=== PATIENT | male | born 1945 | race Caucasian/White ===

== ENCOUNTER 2019-12-22 10:13 | Outpatient (CLI) | payer MEDICARE, SELFPAY ==
--- NOTE | ~2019-12-22 | CT_ITS ---
EXAMINATION: CTA abd aorta runoff DATE: 12/22/2019 11:03 INDICATION: Peripheral vascular disease TECHNIQUE: Computed tomographic angiography (CTA) of the abdomen, pelvis, and both lower extremities was performed with 150 mL Omnipaque-350 intravenous contrast. The dose-length product (DLP) was 1802. 62 mGy-cm. Maximum intensity projection 3D-reconstructions of the arteries were created by the techno logist on a separate workstation. Automated exposure control and iterative reconstruction technique w ere employed. COMPARISON: 05/21/2016 FINDINGS: ABDOMINAL AORTA AND ITS BRANCHES: There is calcified atherosclerosis of the aorta without aneurysm or dissection. The hepatic artery ar ises directly from the aorta. There is mild atherosclerosis at the origin of the superior mesenteric artery without hemodynamically significant stenosis. The celiac axis and inferior mesenteric artery a re unremarkable. Single renal arteries are present bilaterally. PELVIC VASCULATURE: There is calcified atherosclerosis without hemodynamically significant stenosis. RIGHT LOWER EXTREMITY VASCULATURE: There are areas of minimal calcified atherosclerosis without hemodynamically significant stenosis. A three-vessel runoff is noted at the ankle. Changes of knee arthroplasty limit evaluation at the level of the knees. LEFT LOWER EXTREMITY VASCULATURE: There is minimal calcified atherosclerosis of the superficial femoral artery and distal popliteal art skyler without hemodynamically significant stenosis. The anterior tibial artery is occluded just beyond its origin. There is a two-vessel runoff at the ankle. ADDITIONAL FINDINGS: Chronic scarring is noted in the right lower lobe. A calcified nodule of the left lower lobe is consi stent with old granulomatous disease. Cysts of the liver measure up to 1.9 cm. The spleen, pancreas, gallbladder, and adrenal glands are normal. The kidneys are unremarkable. No pathologically enlarged abdominal or pelvic lymph nodes are identified. There is no free intraperitoneal gas or evidence of b owel obstruction. A large volume of colonic stool is present. The prostate is enlarged. There is an u mbilical hernia which contains fat and the anterior wall of a nondistended small bowel loop. IMPRESSION: 1. 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 Reviewed, dictated and finalized at location A. IMPRESSION: 1. 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
[2019-12-22 10:46] LABS: Estimated Glomerular Filt Rate > 60
== END 2019-12-22 10:14 | disposition home or self-care (01) ==
LOC: ANHIMG 10:21
PROVIDERS: PCP Physician Assistant; Visit Provider Podiatrist Foot & Ankle Surgery
DX: I73.9 Peripheral vascular disease, unspecified (principal)
CPT/HCPCS: 36415; 75635; Q9967

== ENCOUNTER → 2021-03-10 07:00 | Outpatient (CLI) | payer MEDICARE, SELFPAY ==
[2021-03-10 21:00] LABS: SARS-CoV-2 RNA PCR Positive
== END ==
PROVIDERS: PCP Physician Assistant; Visit Provider Internal Medicine
DX: U07.1 COVID-19 (principal)
CPT/HCPCS: C9803; U0003; U0005

== ENCOUNTER 2021-03-10 12:49 | Emergency (ER) | payer MEDICARE, SELFPAY ==
--- NOTE | ~2021-03-10 | XR_ITS ---
EXAMINATION: XR chest 1V portable DATE: 03/10/2021 15:31 INDICATION: Cough. COVID-19 positive. TECHNIQUE: A single frontal view of the chest was obtained on 2 radiographs. COMPARISON: Chest 2 views 09/02/2016, CT abdomen and pelvis 12/22/2019 FINDINGS: There are airspace opacities in the lower lung zones. No pleural effusion or pneumothorax. The heart size is normal. IMPRESSION: 1. Airspace opacities in the lower lung zones, consistent with atelectasis/scarring versus pneumonia. Reviewed, dictated and finalized at location A. IMPRESSION: 1. Airspace opacities in the lower lung zones, consistent with atelectasis/scar ring versus pneumonia.
[2021-03-10 13:02] VITALS: BP 142/75; PULSE 67; RESP 18; TEMP 36.6; O2SAT 98
[2021-03-10 14:55] VITALS: BP 146/83; PULSE 62; RESP 20; O2SAT 98
--- NOTE | 2021-03-10 15:16 | ECG_ITS ---
Measurements Intervals [place] Rate: 61 P: 85 [place]: 157 QRS: 73 QRSD: 94 T: 87 QT: 405 QTc: 409 Interpretive Statements SINUS RHYTHM DELAYED PRECORDIAL R/S TRANSITION BORDERLINE T WAVE ABNORMALITY- HIGH LATERAL LEADS BASELINE ARTIFACT- II, III, AVR, AVF, V3-V6 BORDERLINE ECG Electronically Signed On 03-10-2021 17:19:51 CDT by Alvin Godfrey D.O.
--- NOTE | 2021-03-10 15:20 | ED.URI ---
HPI - URI/Sore Throat General Chief Complaint: Upper Respiratory Infection Stated Complaint: covid positive Time Seen by Provider: 03/10/21 14:50 Source: patient and RN notes reviewed Mode of arrival: ambulatory Limitations: no limitations History of Present Illness HPI Narrative: This is a 75 year old male who presents for evaluation of a cough with covid. Patient reports he developed symptoms of covid on Friday , and he tested positive for COVID yesterday. He reports worsening cough, chills and fever. He denies shortness of breath. He has chest discomfort only when he coughs. He also reports decrease appetite but he denies nausea, vomiting or diarrhea. He reports his PCP attempted to order monoclonal infusion as outpatient but there were no appointments so he was recommended to come to ER. Related Data Home Medications Medication Instructions Recorded Confirmed blood sugar diagnostic #10 each 06/14/19 04/25/20 calcium carb-magnesium carb 250 1 tablet PO ONCE tablet 06/14/19 04/25/20 mg-300 mg tablet lancets 33 gauge #100 each 06/14/19 04/25/20 loratadine 10 mg tablet 10 mg PO DAILY 06/14/19 04/25/20 Allergies Allergy/AdvReac Type Severity Reaction Status Date / Time No Known Allergies Allergy Verified 03/10/21 14:52 Review of Systems Review of Systems: All systems reviewed & are unremarkable except as noted in HPI and below PMFSH Past Medical History Medical History (Updated 03/10/21 @ 16:32 by Sho Daniel MD) Diabetes mellitus Family History Family History Mother Patient's mother is Father Patient's father is Acute myocardial infarction Social History Social History Smoking packs per day: 1 Smoking cigarettes per day: 20.0 Years smoked: 15 Smoking pack-years: 15.00 Smoking status: Former smoker Tobacco type: cigarettes Second hand tobacco smoke exposure: No Smoking end date: 07/07/72 Alcohol intake: never Exam Const: General: no acute distress and alert Orientation/consciousness: patient oriented x3 Eyes: EOM: EOMs intact bilaterally Resp: Effort & Inspection: normal respiratory effort and no retractions Auscultation: clear to auscultation bilaterally Cardio: Rate: regular rate Rhythm: regular rhythm Heart sounds: no murmurs GI: GI Palp: Yes Soft to palpation, No Tenderness to palpation present (GI) and No Guarding due to palpation present (GI) Auscultation: normal bowel sounds Skin: General skin exam: normal color Rashes: no rashes Neuro: General: patient oriented x3, moves all extremities and CN's II-XI intact bilaterally Psych: Mental Status: mental status grossly normal Affect: normal affect Course Reevaluation(s) Reevaluation #1: Patient is sitting in bed comfortably. I discussed labs and xray. He was able to walk back to his room without shortness of breath and his oxygen saturation was 98% on room air. I discussed with patient discharge plan. Date: 03/10/21 Time: 16:26 Vital Signs Vital signs: Vital Signs Temperature 97.8 F 03/10/21 13:02 Pulse Rate 67 03/10/21 13:02 Respiratory Rate 18 03/10/21 13:02 Blood Pressure 142/75 H 03/10/21 13:02 Pulse Oximetry 98 03/10/21 13:02 Temperature 97.8 F 03/10/21 13:02 Pulse Rate 84 03/10/21 16:33 Respiratory Rate 17 03/10/21 16:33 Blood Pressure 125/67 03/10/21 16:33 Pulse Oximetry 98 03/10/21 16:33 MDM - URI/Sore Throat Lab Data Attestation: I reviewed the patient's lab results. Result diagrams: 03/10/21 15:30 03/10/21 15:30 Labs: Lab Results 03/10/21 03/10/21 Range/Units 15:30 15:30 WBC 4.4 L (4.5-10.0) K/mm3 RBC 4.62 (4.6-6.20) M/mm3 Hgb 14.4 (14.0-18.0) g/dL Hct 43.9 (42.0-52.0) % MCV 95.0 (80-100) fl MCH 31.2 (26-34) pg MCHC
[2021-03-10 15:56] LABS: Basophils Percent Auto 0.5 % (0.2-1.2); Eosinophils Percent Auto 0.7 % (0-4.4); Hematocrit 43.9 % (42.0-52.0); Hemoglobin 14.4 g/dL (14.0-18.0); Immature Granulocyte Absolute 0.03 K/mm3 (0.00-0.031); Immature Granulocyte Percent A 0.7 % (0-0.5); Lymphocytes Absolute Auto 2.02 K/mm3 (0.9-3.2); Lymphocytes Percent Auto 45.6 % (18.3-44.2); Mean Corpuscular HGB Conc 32.8 g/dl (32-36); Mean Corpuscular Hemoglobin 31.2 pg (26-34); Mean Platelet Volume 10.6 fl (7.4-10.4); Monocytes Absolute Auto 0.5 K/mm3 (0.1-0.6); Neutrophils Absolute Auto 1.8 K/mm3 (1.3-6.7); Neutrophils Percent Auto 40.5 % (45.5-73.1); Platelet Count Result 155 k/mm3 (150-375); Red Blood Count 4.62 M/mm3 (4.6-6.20); Red Cell Distribution Width 13.9 % (11.5-14.5); White Blood Count 4.4 K/mm3 (4.5-10.0)
[2021-03-10 16:06] LABS: Alanine Aminotransferase 23 U/L (4-50); Albumin Level 4.1 g/dL (3.5-5.1); Alkaline Phosphatase 49 U/L (38-126); Anion Gap 8 mmol/L (8-16); Aspartate Amino Transferase 28 U/L (17-59); Bilirubin,Total 0.5 mg/dL (0.2-1.3); Blood Urea Nitrogen 24 mg/dL (9-20); Calcium 8.9 mg/dL (8.4-10.2); Carbon Dioxide 24 mmol/L (22-30); Chloride 103 mmol/L (98-107); Estimated CRCL calculation 70 ml/min; Estimated Glomerular Filt Rate > 60; Glucose 107 mg/dL (65-110); Potassium 4.2 mmol/L (3.4-5.0); Sodium 135 mmol/L (137-145)
[2021-03-10 16:33] VITALS: BP 125/67; PULSE 84; RESP 17; O2SAT 98
== END 2021-03-10 16:49 | disposition home or self-care (01) ==
PROVIDERS: Emergency Provider General Practice; PCP Physician Assistant
DX: U07.1 COVID-19 (principal); J12.82 Pneumonia due to coronavirus disease 2019; E11.9 Type 2 diabetes mellitus without complications; Z87.891 Personal history of nicotine dependence; R94.31 Abnormal electrocardiogram [ECG] [EKG]
CPT/HCPCS: 36415; 71045; 80053; 85025; 93005; 99283; C9803; U0003; U0005